=== PATIENT | male | born 1995 | race Two or more races ===

== ENCOUNTER 2017-10-30 13:54 | Emergency (ER) | payer MEDICAID ==
[~2017-10-30] VITALS: Ht 167.6 cm; Wt 65.9 kg
[2017-10-30 14:09] VITALS: Ht 167.6 cm; Wt 65.9 kg
== END 2017-10-30 15:00 | disposition left against medical advice (07) ==
LOC: D.ER 13:54
DX: S51.012A Laceration without foreign body of left elbow, initial encounter (principal); W26.0XXA Contact with knife, initial encounter; Y93.89 Activity, other specified; Y92.89 Other specified places as the place of occurrence of the external cause